=== PATIENT | female | born 1970 | race Caucasian/White ===

== ENCOUNTER 2022-05-11 17:32 | Emergency (ER) | payer OTHER, SELFPAY ==
[2022-05-11 17:37] VITALS: BP 151/100; PULSE 71; RESP 18; TEMP 36.7; O2SAT 100; BMI 24.0
[2022-05-11 18:14] LABS: Appearance Urine Clear (Clear); Bilirubin Urine Negative (Negative); Blood Urine Negative (Negative); Color Urine Yellow (Yellow); Glucose Urine Negative (Negative); Ketones Urine Negative (Negative); Leukocyte Esterase Urine Trace (Negative); Nitrite Urine Negative (Negative); Protein Urine Negative (Negative); Specific Gravity Urine 1.025 (1.000-1.030); Urobilinogen Urine 0.2 (0.2-1.0); pH Urine 6.5 (5.0-8.5)
[2022-05-11 18:23] LABS: RBC Urine 0-2 (0-2)
[2022-05-11] MEDS: HYDROmorphone 0.5 mg/0.5 ml inj 1.5 MG IM (18:31)
[2022-05-11 18:32] VITALS: O2SAT 97
[2022-05-11] MEDS: KETOROLAC 30 MG/ML inj 45 MG IM (18:32)
[2022-05-11 18:40] VITALS: PULSE 63; O2SAT 97
[2022-05-11 18:56] VITALS: PULSE 61; O2SAT 96
--- NOTE | 2022-05-11 19:24 | ED_ITS ---
HPI - General Adult General Chief complaint: Abdominal Pain Stated complaint: Abdominal and Back Pain Time Seen by Provider: 05/11/22 17:49 History of Present Illness HPI narrative: 52-year-old woman presenting to the emergency department with complaint of spasms of pain in her left flank/back area. She thought this morning maybe she felt a twinge of something but it has just escalated and gotten particularly bad when she came home from work this afternoon. Hurts to do any movement or go to sitting. No loss of bowel or bladder control. Seems that when she presses on the left upper abdomen her rib area causes worsening of this pain. It is sharp. She is wondering maybe if gallbladder might be involved. She does recall history of kidney stones some decades ago. Has not had trouble since. She is not having dysuria frequency urgency or hematuria. No fever. No trauma but on further recollection notes that yesterday had been doing some raking and wondering if she might have pulled something particularly around the ribs. Pain is not necessarily pleuritic it is more the seated upright or least the transition the causes more discomfort. She is not specifically short of breath. Related Data Home Medications Medication Instructions Recorded Confirmed letrozole 2.5 mg tablet 2.5 mg PO DAILY 05/11/22 05/11/22 losartan 12.5 mg PO DAILY 05/11/22 05/11/22 sertraline 100 mg tablet (Zoloft) 150 mg PO DAILY 05/11/22 05/11/22 Allergies Allergy/AdvReac Type Severity Reaction Status Date / Time Sulfa (Sulfonamide Allergy Mild Hives Verified 05/11/22 17:43 Antibiotics) venlafaxine [From Effexor] Allergy Mild high bp Verified 05/11/22 17:43 cats Allergy Mild sneezy Uncoded 05/11/22 17:43 Review of Systems Status of ROS: Reports: 6 or more systems reviewed and unremarkable except as noted in History and below PFSH PFS Social History Smoking Status: Former smoker What tobacco products do you use: cigarettes Smoking quit date/years: <= 15 years ago Do you use any of these nicotine containing products: None Second hand tobacco smoke exposure: No How often do you have a drink containing alcohol: 4 or more times a week How many standard drinks containing alcohol do you have on a typical day: 3 or 4 How often do you have six or more drinks on one occasion: Never AUDIT-C Alcohol total score: 5 Non-prescribed substance use: denies use Exam Narrative: Exam Narrative: Very pleasant. Semi recumbent in bed legs crossed. Quite uncomfortable but toughs it out for transition to sitting or laying. Elevating her legs clearly causes pain. Breathing easily. Lungs appear to be clear. Cardiovascular with RRR no murmur rub or gallop appreciated. Abdomen is soft. She is not particularly tender in the right upper abdomen. Increasingly tender but particularly so at the left upper abdomen rib margin. Skin is warm and dry without apparent rash. No evidence of trauma. Examination of the back does reveal reproducible tenderness in the left mid back, the paraspinal musculature is quite sore with feels good to pressure at the same time. This seems to be the location of her pain. No SI joint tenderness. No midline back tenderness. Other than causing pain appears to be moving all extremities without difficulty with good strength. Well perfused and no loss of sensation apparent Const: Vital Signs, click to edit/add: Vital Signs - 24 hr 05/11/22 17:37 05/11/22 18:32 05/11/22 18:40 Temperature 98.1 F Pulse Rate [Right Pulse Oximeter] 71 63 Respiratory Rate 18 Blood Pressure [Ri ght Upper Arm] 151/100 H Pulse Oximetry 100 97 97 Oxygen Delivery Me thod Room Air Room Air 05/11/22 18:56 Temperature Pulse Rate [Right Pulse Oximeter] 61 Respiratory Rate Blood Pressure [Ri ght Upper Arm] Pulse Oximetry 96 Oxygen Delivery Me thod Room Air Course Vital Signs Vital signs: Initial Vital Signs Temperature 98.1 F 05/11/22 17:37 Temperature Source Temporal Artery Scan 05/11/22 17:37 Pulse Rate 71 05/11/22 17:37 Respiratory Rate 18 05/11/22 17:37 Blood Pressure 151/100 H 05/11/22 17:37 Blood Pressure Mean 117 05/11/22 17:37 Blood Pressure Position Sitting 05/11/22 17:37 Pulse Oximetry 100 05/11/22 17:37 Oxygen Delivery Method 05/11/22 17:37 Vital Signs Temperature 98.1 F 05/11/22 17:37 Pulse Rate 71 05/11/22 17:37 Respiratory Rate 18 05/11/22 17:37 Blood Pressure 151/100 H 05/11/22 17:37 Pulse Oximetry 100 05/11/22 17:37 Oxygen Delivery Method 05/11/22 17:37 Temperature 98.1 F 05/11/22 17:37 Pulse Rate 61 05/11/22 18:56 Respiratory Rate 18 05/11/22 17:37 Blood Pressure 151/100 H 05/11/22 17:37 Pulse Oximetry 96 05/11/22 18:56 Oxygen Delivery Method 05/11/22 18:56 Medical Decision Making MDM Narrative Medical decision making narrative: I think is reasonable to screen with urinalysis for potential infection or evidence of nephrolithiasis/ureteral stone and colic. She indicates that she does no longer has those parts and so could not be . Cancelling urine test. The ability of this pain suggests musculoskeletal involvement. Propose injection to break this cycle. Ordered for Dilaudid and ketorolac. Urinalysis is essentially clear with 2-5 white cells on micro and trace leukocyte esterase. Again no symptoms of urinary tract infection otherwise. With reassessment is clearly more comfortable. Raising her arms up overhead without significant pain. She would like to depart home and take ibuprofen or acetaminophen. Apparently also does have some baclofen available and some residual Vicodin she thinks she could take half a tablet if absolutely necessary. Lab Data Lab results reviewed: Yes I reviewed the patient's lab results Labs: Lab Results 05/11/22 Range/Units 18:07 Urine Color Yellow (Yellow) Urine Appearance Clear (Clear) Urine pH 6.5 (5.0-8.5) Ur Specific [place] 1.025 (1.000-1.030) Urine Protein Negative (Negative) Urine Glucose (UA) Negative (Negative) Urine Ketones Negative (Negative) Urine Blood Negative (Negative) Urine Nitrite Negative (Negative) Urine Bilirubin Negative (Negative) Urine Urobilinogen 0.2 (0.2-1.0) Ur Leukocyte Esterase Trace A (Negative) Urine RBC 0-2 (0-2) Urine WBC 2-5 (0-5) Ur Squamous Epith Cells None (None-Few) Urine Bacteria None (None) Discharge Plan Discharge Clinical Impression: Rib injury, Back spasm Patient Disposition: Home w/ Parent or Adult Condition: Improved Additional Instructions: See handout here on ideas for stretches you might do over the next few days. Can take up to 800 mg of ibuprofen or up to 1000 mg of acetaminophen per dose. Alternative to the ibuprofen might be up to 500 mg naproxen 2 times daily. Could take your baclofen when you get home. Yes, residual [place] if you are really having trouble. Stay hydrated. Return for uncontrolled pain or new weakness, loss of bowel or bladder control. Prescriptions: No Action losartan 12.5 mg PO DAILY sertraline [Zoloft] 100 mg tablet 150 mg PO DAILY letrozole 2.5 mg tablet 2.5 mg PO DAILY Rx Instructions: begin between days 2 and 5 of mentrual cycle Follow Up/Referrals: Daria Li DO [Primary Care Provider] - Stand Alone Forms: Only [place] Info Instructions
== END 2022-05-11 19:02 | disposition home or self-care (01) ==
PROVIDERS: Emergency Provider Family Medicine; PCP Family Medicine
DX: M62.830 Muscle spasm of back (principal); S29.9XXA Unspecified injury of thorax, initial encounter
CPT/HCPCS: 81001; 84703; 94761; 96372; 99284; J1170; J1885